=== PATIENT | female | born 1965 | race Caucasian/White ===

== ENCOUNTER 2025-08-02 10:14 | Outpatient (CLI) | payer OTHER ==
[2025-08-02 10:52] LABS: Estimated GFR - POC 74.0
== END 2025-08-02 10:15 | disposition home or self-care (01) ==
LOC: SCSMRI 10:14
PROVIDERS: ATTEND Psychiatry & Neurology Neurology
DX: I63.9 Cerebral infarction, unspecified (principal); R90.82 White matter disease, unspecified; I73.9 Peripheral vascular disease, unspecified; I67.82 Cerebral ischemia
CPT/HCPCS: 36415; 70553; 76376; 82565

== ENCOUNTER 2025-11-08 11:04 | Outpatient (CLI) | payer OTHER | END 2025-11-08 11:05 | disposition home or self-care (01) | LOC: RAD 11:04 | PROVIDERS: ATTEND Internal Medicine Critical Care Medicine | DX: R06.00 Dyspnea, unspecified (principal); J84.9 Interstitial pulmonary disease, unspecified; R91.8 Other nonspecific abnormal finding of lung field | CPT/HCPCS: 71046 ==